=== PATIENT | female | born 1970 | race Caucasian/White ===

== ENCOUNTER 2016-10-27 07:17 | Emergency (ER) | payer OTHER ==
[2016-10-27 07:21] VITALS: BP 130/72; PULSE 112; RESP 20; TEMP 98.5
[2016-10-27] MEDS ORDERED: FAMOTIDINE 20 MG/2 ML VIAL MISCELLANE STA (07:35)
[2016-10-27] MEDS ORDERED: diphenhydrAMINE 50 MG/ML 1 ML VIAL IM STA (07:35)
--- NOTE | 2016-10-27 07:40 | ED ---
General Adult HPI - General Chief complaint: Allergic Reaction Stated complaint: Hives Time Seen by Provider: 10/27/16 07:21 Source: patient Mode of arrival: ambulatory Limitations: no limitations - History of Present Illness Initial comments: Is a 45-year-old female with no past medical history presents emergency department for generalized rash. She states is been there for the last 4 days. She was seen here partially 4 days ago and received steroids, Benadryl, and Pepcid. She's been taking his medications and states that she felt like she improved for a couple of days and then it came back and was worse. She is also been using [id number] topical Benadryl cream. She states that it's very itchy and feels like her skin is burning. She states it started on her chest and has moved out generally. She states that she also has difficulty breathing through her nose and feels stuffy and also has itchy and watery eyes. She does state that they recently had there for opened up in the insulation is been exposed. She denies any other new medications. No animal exposures. She called her primary doctor for evaluation however has not been able to get into the office yet. - Related Data Home Medications Medication Instructions Recorded Confirmed clonazePAM [KlonoPIN] 1 mg PO HS 01/12/14 10/09/15 Cetirizine HCl [Zyrtec] 5 mg PO QAM PRN 02/25/14 10/09/15 Hydrocodone/Acetaminophen [[place] 1 tab PO DIRECTED 06/06/14 10/09/15 5-325] Gabapentin [Neurontin] 400 mg PO TID 10/09/15 10/09/15 Mirtazapine [Remeron] 15 mg PO HS 10/09/15 10/09/15 Previous Rx's Medication Instructions Recorded Famotidine [Pepcid] 20 mg PO BID #8 tablet 10/23/16 diphenhydrAMINE [Benadryl] 50 mg PO QID PRN #20 capsule 10/23/16 predniSONE 20 mg PO BID #8 tab 10/23/16 methylPREDNISolone Dose Pack 4 mg PO DIRECTED #21 package 10/27/16 [Medrol Dose Pack] Allergies Allergy/AdvReac Type Severity Reaction Status Date / Time Penicillins AdvReac Severe Anaphylaxis Verified 10/27/16 07:21 Sulfa (Sulfonamide AdvReac Severe Anaphylaxis Verified 10/27/16 07:21 Antibiotics) Review of Systems ROS Statement: Those systems with pertinent positive or pertinent negative responses have been documented in the HPI. ROS Other: All systems not noted in ROS Statement are negative. 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 It is blanching with multiple excoriations from scratching. There is no weeping or vesicles. There is no pattern to the rash and is generalized. Neuro: A&Ox3 No focal neurologic deficits Psych: Appropriate mood and affect Limitations: no limitations Course Vital Signs 10/27/16 07:19 Temperature 98.5 F Pulse Rate 112 H Respiratory 20 Rate Blood Pressure 130/72 O2 Sat by Pulse 99 Oximetry Medical Decision Making - Medical Decision Making This is a 45-year-old female who presented for itchy rash. It appears to be an ALLERGIC reaction. I believe the patient is very exposing herself to something in her house. I told her to taper off the insulation and also monitor for any different soaps or anything else that she can be exposing herself to. I'm going to switch her steroids over to a Medrol Dosepak. She can continue with Benadryl 50 mg every 6 and also Zantac 150 mg twice a day. She is to follow-up with her primary doctor tomorrow. She has any worsening or changing symptoms she can return emergency department. All questions were answered. Disposition Clinical Impression: Atopic dermatitis Disposition: HOME SELF-CARE Condition: Stable Instructions: Dermatitis (ED) Prescriptions: methylPREDNISolone Dose Pack [Medrol Dose Pack] 4 mg PO DIRECTED #21 package Referrals: Marc Bullock DO [Primary Care Provider] - 1-2 days
== END 2016-10-27 08:10 | disposition home or self-care (01) ==
LOC: EC 07:17
DX: L20.9 Atopic dermatitis, unspecified (principal); M79.7 Fibromyalgia; F32.9 Major depressive disorder, single episode, unspecified; F41.0 Panic disorder [episodic paroxysmal anxiety]; F17.200 Nicotine dependence, unspecified, uncomplicated; Z79.899 Other long term (current) drug therapy; Z88.0 Allergy status to penicillin; Z88.2 Allergy status to sulfonamides
CPT/HCPCS: 99283; 96372 ×2; J1200

== ENCOUNTER 2016-12-10 20:13 | Emergency (ER) | payer OTHER ==
[2016-12-10] MEDS ORDERED: FAMOTIDINE 20 MG/2 ML VIAL IV STA (20:23)
[2016-12-10] MEDS ORDERED: diphenhydrAMINE 50 MG/ML 1 ML VIAL IVP STA (20:23)
[2016-12-10] MEDS ORDERED: SODIUM CHLORIDE 0.9% 500 ML IV ONE (20:23)
[2016-12-10] MEDS ORDERED: methylPREDNISolone SOD SUCCI 125 MG/2 ML VIAL IV STA (20:23)
--- NOTE | 2016-12-10 20:27 | ED ---
Allergic Reaction HPI - General Chief complaint: Allergic Reaction Stated complaint: Hives Time Seen by Provider: 12/10/16 20:19 Source: patient, RN notes reviewed Mode of arrival: ambulatory Limitations: no limitations - History of Present Illness Initial Comments: 46-year-old female presents emergency Department chief complaint hives. Patient states she's been having on going recurrent hives over the last 6-7 weeks. Patient states that she has been seen multiple times in the ER and by primary care physician. Patient has been referred to an hollow ware maker. Patient states today she was just sitting up a ball field and states that she started with hives. Patient states that she has no difficult breathing or difficulty swallowing. Patient states that she did take some Benadryl prior arrival and an albuterol inhaler. Patient denies any new soaps or lotions or detergents. Denies any new products of any sort. - Related Data Home Medications Medication Instructions Recorded Confirmed Hydrocodone/Acetaminophen [[place] 1 tab PO DAILY PRN 06/06/14 12/10/16 5-325] Mirtazapine [Remeron] 15 mg PO HS 10/09/15 12/10/16 Albuterol Inhaler [Ventolin Hfa 2 puff INHALATION RT-Q6H PRN 12/10/16 12/10/16 Inhaler] EPINEPHrine [Epipen 2-Henrik] 0.3 mg IM ONCE PRN 12/10/16 12/10/16 Gabapentin [Neurontin] 100 mg PO TID 12/10/16 12/10/16 Ibuprofen [Motrin] 800 mg PO TID PRN 12/10/16 12/10/16 Lidocaine 4% Cream [Lmx 4] 1 applic TOPICAL DAILY PRN 12/10/16 12/10/16 Lisinopril [Zestril] 5 mg PO HS 12/10/16 12/10/16 clonazePAM [KlonoPIN] 1 mg PO HS 12/10/16 12/10/16 diphenhydrAMINE HCL [Benadryl] 25 mg PO Q4H PRN 12/10/16 12/10/16 lamoTRIgine [LaMICtal Xr] 50 mg PO HS 12/10/16 12/10/16 Previous Rx's Medication Instructions Recorded Famotidine [Pepcid] 20 mg PO BID #8 tablet 04/05/17 Famotidine [Pepcid] 20 mg PO BID #10 tablet 12/10/16 diphenhydrAMINE [Benadryl] 50 mg PO QID PRN #20 capsule 12/10/16 methylPREDNISolone [Medrol Dose 4 mg PO DIRECTED #1 pack 12/10/16 Pack] Allergies Allergy/AdvReac Type Severity Reaction Status Date / Time Penicillins Allergy Unknown Rash/Hives Verified 12/10/16 20:44 Sulfa (Sulfonamide Allergy Unknown Rash/Hives Verified 12/10/16 20:44 Antibiotics) venom-honey bee Allergy Anaphylaxis Verified 12/10/16 20:44 Review of Systems ROS Statement: Those systems with pertinent positive or pertinent negative responses have been documented in the HPI. ROS Other: All systems not noted in ROS Statement are negative. 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 Absent: scleral icterus, conjunctival injection, periorbital swelling ENT exam: Present: normal exam, normal oropharynx, mucous membranes moist, TM's normal bilaterally, normal external ear exam Neck exam: Present: normal inspection, full ROM. Absent: tenderness, meningismus, lymphadenopathy Respiratory exam: Present: normal lung sounds bilaterally. Absent: respiratory distress, wheezes, rales, rhonchi, stridor Cardiovascular Exam: Present: normal rhythm, tachycardia, normal heart sounds. Absent: systolic murmur, diastolic murmur, rubs, gallop, clicks Neurological exam: Present: alert, oriented X3, CN II-XII intact Skin exam: Present: warm, dry, intact, normal color, rash, urticaria (Diffuse torso region neck and upper legs) Course Vital Signs 12/10/16 20:18 Temperature 98.6 F Pulse Rate 135 H Respiratory 20 Rate Blood Pressure 133/75 O2 Sat by Pulse 98 Oximetry - Reevaluation(s) Reevaluation #1: 12/10/16 21:28 Patient was reevaluated at this time. Patient's rash is resolving states that she is feeling improved. Patient be discharged with Medrol Dosepak, Benadryl. Return parameters were discussed. Medical Decision Making - Medical Decision Making 46-year-old female presented for rash or urticaria. Patient is improved after IV Benadryl; Pepcid. Patient be discharged at this time with follow-up with hollow ware maker return parameters were discussed. 12/10/16 21:28 EKG performed at 21:04 normal sinus rhythm rate of 96 UT interval 184 QRS duration 80 QT/QTC 344/434 Disposition Clinical Impression: Allergic reaction Disposition: HOME SELF-CARE Condition: Stable Instructions: General Allergic Reaction (ED) Additional Instructions: Please return to the Emergency Department if symptoms worsen or any other concerns. Prescriptions: diphenhydrAMINE [Benadryl] 50 mg PO QID PRN #20 capsule PRN Reason: Allergic Reaction Famotidine [Pepcid] 20 mg PO BID #10 tablet methylPREDNISolone [Medrol Dose Pack] 4 mg PO DIRECTED #1 pack Referrals: Marc Bullock DO [Primary Care Provider] - 1-2 days Time of Disposition: 21:29
[2016-12-10] MEDS ORDERED: LORazepam 2 MG/ML SYRINGE IV STA (20:48)
[2016-12-10 21:43] VITALS: BP 125/77; PULSE 100; RESP 18; TEMP 97.7
== END 2016-12-10 21:43 | disposition home or self-care (01) ==
LOC: EC 20:13
DX: T78.40XA Allergy, unspecified, initial encounter (principal); M79.7 Fibromyalgia; I10 Essential (primary) hypertension; F32.9 Major depressive disorder, single episode, unspecified; F41.9 Anxiety disorder, unspecified; F41.0 Panic disorder [episodic paroxysmal anxiety]; F17.200 Nicotine dependence, unspecified, uncomplicated; Z79.899 Other long term (current) drug therapy; Z88.0 Allergy status to penicillin; Z88.2 Allergy status to sulfonamides; Z91.013 Allergy to seafood
CPT/HCPCS: 93005; 99283; 96374; 96375 ×3; J2060; J1200; J2930

== ENCOUNTER → 2016-12-19 | Outpatient (CLI) | payer OTHER | END | disposition home or self-care (01) | LOC: LABWHC1 15:40 | PROVIDERS: ATTEND Family Medicine | DX: E66.09 Other obesity due to excess calories (principal) | CPT/HCPCS: 36415; 82947; 84439; 84443 ==

== ENCOUNTER 2017-01-03 17:16 | Emergency (ER) | payer OTHER ==
[2017-01-03 17:46] VITALS: BP 142/64; PULSE 91; RESP 18; TEMP 99
[2017-01-03] MEDS ORDERED: methylPREDNISolone SOD SUCCI 125 MG/2 ML VIAL IM STA (17:51)
--- NOTE | 2017-01-03 17:53 | ED ---
Skin/Abscess/FB HPI - General Chief complaint: Skin/Abscess/Foreign Body Stated complaint: hives Time Seen by Provider: 01/03/17 17:41 Source: patient, RN notes reviewed Mode of arrival: ambulatory Limitations: no limitations - History of Present Illness Initial comments: 46-year-old female presents emergency Department chief complaint of urticaria. Patient has been having hives outbreaks for the last 3 months. She is currently has a cough appointment with the field irrigation worker but she broke out with a rash again today and she feels as if she needs another dose of steroids. Patient states she hasn't had any fever chills this could Raynaud's. Patient states there is nothing new or different. Patient states she simply needs steroids. There is no difficulty in breathing.Patient denies any recent fever, chills, shortness of breath, chest pain, back pain, abdominal pain, nausea vomiting, numbness or tingling, dysuria or hematuria, constipation or diarrhea, headaches or visual changes, or any other current symptoms. - Related Data Home Medications Medication Instructions Recorded Confirmed Hydrocodone/Acetaminophen [[place] 1 tab PO DAILY PRN 06/06/14 01/03/17 5-325] Mirtazapine [Remeron] 15 mg PO HS 10/09/15 01/03/17 Albuterol Inhaler [Ventolin Hfa 2 puff INHALATION RT-Q6H PRN 12/10/16 01/03/17 Inhaler] EPINEPHrine [Epipen 2-Henrik] 0.3 mg IM ONCE PRN 12/10/16 01/03/17 Gabapentin [Neurontin] 100 mg PO TID 12/10/16 01/03/17 Ibuprofen [Motrin] 800 mg PO TID PRN 12/10/16 01/03/17 Lidocaine 4% Cream [Lmx 4] 1 applic TOPICAL DAILY PRN 12/10/16 01/03/17 Lisinopril [Zestril] 5 mg PO HS 12/10/16 01/03/17 clonazePAM [KlonoPIN] 1 mg PO HS 12/10/16 01/03/17 diphenhydrAMINE HCL [Benadryl] 25 mg PO Q4H PRN 12/10/16 01/03/17 lamoTRIgine [LaMICtal Xr] 50 mg PO HS 12/10/16 01/03/17 Budesonide-Formot 160-4.5 Mcg 2 puff INHALATION BID 01/03/17 01/03/17 [Symbicort 160-4.5 Mcg Inhaler] Metoprolol Succinate (ER) [Toprol 12.5 mg PO DAILY 01/03/17 01/03/17 Xl] Previous Rx's Medication Instructions Recorded Famotidine [Pepcid] 20 mg PO BID #8 tablet 10/23/16 Famotidine [Pepcid] 20 mg PO BID #10 tablet 12/10/16 diphenhydrAMINE [Benadryl] 50 mg PO QID PRN #20 capsule 12/10/16 methylPREDNISolone [Medrol Dose 4 mg PO DIRECTED #1 pack 12/10/16 Pack] diphenhydrAMINE [Benadryl] 50 mg PO HS PRN #5 capsule 01/03/17 methylPREDNISolone Dose Pack 4 mg PO DIRECTED #21 package 01/03/17 [Medrol Dose Pack] Allergies Allergy/AdvReac Type Severity Reaction Status Date / Time Penicillins Allergy Unknown Rash/Hives Verified 01/03/17 17:46 Sulfa (Sulfonamide Allergy Unknown Rash/Hives Verified 01/03/17 17:46 Antibiotics) venom-honey bee Allergy Anaphylaxis Verified 01/03/17 17:46 Review of Systems ROS Statement: Those systems with pertinent positive or pertinent negative responses have been documented in the HPI. ROS Other: All systems not noted in ROS Statement are negative. Past Medical History Past Medical History: Asthma, Fibromyalgia, Hypertension, Skin Disorder Additional Past Medical History / Comment(s): was gestational diabetic with and states now she has hypERglycemia, elevated heart rate History of Any Multi-Drug Resistant Organisms: None Reported Past Surgical History: Section Past Anesthesia/Blood Transfusion Reactions: No Reported Reaction Past Psychological History: Anxiety, Depression, Panic Disorder Smoking Status: Current every day smoker Past Alcohol Use History: Rare Past Drug Use History: None Reported General Exam Limitations: no limitations General appearance: alert, in no apparent distress ENT exam: Present: normal exam, mucous membranes moist Neck exam: Present: normal inspection. Absent: tenderness, meningismus, lymphadenopathy Respiratory exam: Present: normal lung sounds bilaterally. Absent: respiratory distress, wheezes, rales, rhonchi, stridor Cardiovascular Exam: Present: regular rate, normal rhythm, normal heart sounds. Absent: systolic murmur, diastolic murmur, rubs, gallop, clicks Neurological exam: Present: alert, oriented X3 Psychiatric exam: Present: normal affect, normal mood Skin exam: Present: warm, dry, intact, urticaria Course Vital Signs 01/03/17 17:40 Temperature 99.0 F Pulse Rate 91 Respiratory 18 Rate Blood Pressure 142/64 O2 Sat by Pulse 94 L Oximetry Medical Decision Making - Medical Decision Making 46-year-old female presents emergency Department chief complaint of an urticarial type rash. At this time we will start patient started to Benadryl. At this time she currently is in outpatient workup for the urticaria. Did discuss return parameters and all her questions. She states she understood and treatment plan. She'll be discharged. Disposition Clinical Impression: Urticaria Disposition: HOME SELF-CARE Condition: Stable Instructions: Urticaria (ED) Additional Instructions: Please use medication as discussed. Please follow up with family doctor if symptoms have not improved over the next two days. Please return to the emergency room if your symptoms increase or worsen or for any other concerns. Prescriptions: diphenhydrAMINE [Benadryl] 50 mg PO HS PRN #5 capsule PRN Reason: Itching methylPREDNISolone Dose Pack [Medrol Dose Pack] 4 mg PO DIRECTED #21 package Referrals: Marc Bullock DO [Primary Care Provider] - 1-2 days Time of Disposition: 17:53
== END 2017-01-03 18:03 | disposition home or self-care (01) ==
LOC: EC 17:16
DX: L50.9 Urticaria, unspecified (principal); I10 Essential (primary) hypertension; J45.909 Unspecified asthma, uncomplicated; F32.9 Major depressive disorder, single episode, unspecified; F17.200 Nicotine dependence, unspecified, uncomplicated; Z79.51 Long term (current) use of inhaled steroids; Z79.899 Other long term (current) drug therapy; Z88.0 Allergy status to penicillin; Z88.2 Allergy status to sulfonamides; Z91.030 Bee allergy status
CPT/HCPCS: 99282; 96372; J2930

== ENCOUNTER → 2017-01-28 | Outpatient (CLI) | payer OTHER ==
[2017-01-28 13:05] LABS: Basophils % (A) 0 %; CH 31.8; Eosinophils # (A) 0.2 k/uL (0-0.7); Eosinophils % (A) 3 %; HCT 38.7 % (34.0-46.0); HDW 2.24; HGB 13.6 gm/dL (11.4-16.0); Luc # (Auto) 0.12; Luc % (Auto) 2; Lymphocytes # (A) 2.6 k/uL (1.0-4.8); Lymphocytes % (A) 38 %; MCHC 35.2 g/dL (31.0-37.0); MCV 93.8 fL (80.0-100.0); Mean Platelet Volume 7.4; Monocytes # (A) 0.3 k/uL (0-1.0); Monocytes % (A) 5 %; Neutrophils # (A) 3.5 k/uL (1.3-7.7); Neutrophils % (A) 51 %; RBC 4.12 m/uL (3.80-5.40); RDW 13.4 % (11.5-15.5); WBC 6.9 k/uL (3.8-10.6); WBC (Perox) 7.06
--- NOTE | 2017-01-28 13:07 | XR ---
EXAMINATION TYPE: XR chest 2V DATE OF EXAM: 01/28/2017 COMPARISON: Chest x-ray July 03, 2015. HISTORY: Nicotine dependence. TECHNIQUE: Frontal and lateral views of the chest are obtained. FINDINGS: There is no focal air space opacity, pleural effusion, or pneumothorax seen. The cardiac silhouette size is within normal limits. The osseous structures are intact. IMPRESSION: No acute cardiopulmonary process on current study.
[2017-01-28 13:15] LABS: Rheumatoid Factor, Qnt <9 IU/mL (<12)
[2017-01-28 13:16] LABS: C Reactive Protein 8.1 mg/L (<10.0)
[2017-01-28 14:28] LABS: Hepatitis B Surface Ag Index 0.05
[2017-01-28 14:34] LABS: Hepatitis B Core IgM Index 0.03
[2017-01-28 14:45] LABS: Hepatitis C Virus IgG Ab Negative (Negative); Hepatitis C Virus IgG Index 0.02
[2017-01-28 19:03] LABS: Treponemal Ab Non-Reactive (Non-Reactive)
[2017-01-28 19:57] LABS: ANA w/Reflex to Titer NEGATIVE (NEGATIVE)
== END | disposition home or self-care (01) ==
LOC: LABWHC1 11:54
PROVIDERS: ATTEND Allergy & Immunology
DX: F17.208 Nicotine dependence, unspecified, with other nicotine-induced disorders (principal); L50.8 Other urticaria
CPT/HCPCS: 36415; 71020; 80074; 82785; 84165; 84439; 84443; 85025; 86038; 86140; 86376; 86431; 86780; 86800

== ENCOUNTER 2017-02-21 16:31 | Emergency (ER) | payer OTHER ==
[2017-02-21] MEDS ORDERED: RX INFO: IV CONTRAST WAS GIVEN 1 EACH MISC MISCELLANE PRN ×2 (16:42→17:15)
[2017-02-21 16:43] VITALS: BP 140/85; PULSE 84; RESP 22; TEMP 99.1
[2017-02-21] MEDS ORDERED: fentaNYL (PF) 50 MCG/ML 2 ML AMP IVP STA (16:53)
[2017-02-21 16:59] LABS: Basophils # (A) 0.1 k/uL (0-0.2); Basophils % (A) 1 %; CH 32.7; CHCM 34.5; Eosinophils # (A) 0.3 k/uL (0-0.7); Eosinophils % (A) 3 %; HCT 43.2 % (34.0-46.0); HDW 2.27; HGB 14.6 gm/dL (11.4-16.0); Luc # (Auto) 0.22; Luc % (Auto) 2; Lymphocytes # (A) 4.1 k/uL (1.0-4.8); Lymphocytes % (A) 30 %; MCHC 33.7 g/dL (31.0-37.0); Mean Platelet Volume 7.8; Monocytes # (A) 0.4 k/uL (0-1.0); Monocytes % (A) 3 %; Neutrophils # (A) 8.4 k/uL (1.3-7.7); Neutrophils % (A) 62 %; RBC 4.55 m/uL (3.80-5.40); RDW 13.8 % (11.5-15.5); WBC 13.6 k/uL (3.8-10.6); WBC (Perox) 13.38
--- NOTE | 2017-02-21 17:07 | XR ---
EXAMINATION TYPE: XR Hip RT and AP Pelvis DATE OF EXAM: 02/21/2017 COMPARISON: NONE HISTORY: Pain TECHNIQUE: A single AP view of the pelvis is obtained. Two views of the right hip are obtained. FINDINGS: The pelvic ring is intact. Proximal right femur and hip joint appear normal. There is no si gn of hip dysplasia. Sacroiliac joints appear normal. IMPRESSION: Negative pelvis and right hip exam.
--- NOTE | 2017-02-21 17:08 | XR ---
EXAMINATION TYPE: XR chest 1V portable DATE OF EXAM: 02/21/2017 COMPARISON: 01/28/2017 HISTORY: Pain TECHNIQUE: Single frontal view of the chest is obtained. FINDINGS: There is some infiltrate at the lateral left lung base. The other lung cloud are clear. T here is no sign of pneumothorax. Bony thorax appears intact. Heart and mediastinum appear normal. IMPRESSION: There is new infiltrate at the lateral left lung base. No obvious rib fracture.
[2017-02-21 17:10] LABS: ALT 26 U/L (9-52); AST 25 U/L (14-36); Alcohol <10 mg/dL; Alkaline Phosphatase 92 U/L (38-126); Amylase 38 U/L (30-110); Anion Gap 10 mmol/L; Blood Urea Nitrogen 14 mg/dL (7-17); Calcium 9.7 mg/dL (8.4-10.2); Carbon Dioxide 25 mmol/L (22-30); Chloride 106 mmol/L (98-107); Glucose 105 mg/dL (74-99); Non-African American GFR(MDRD) >60 (>60 ml/min/1.73 sqM); Potassium 4.1 mmol/L (3.5-5.1); Sodium 141 mmol/L (137-145); Total Bilirubin 0.3 mg/dL (0.2-1.3); Total Protein 6.6 g/dL (6.3-8.2)
--- NOTE | 2017-02-21 17:10 | ED ---
General Adult HPI - General Chief complaint: Fall Stated complaint: Fall- 13 ft Time Seen by Provider: 02/21/17 16:42 Source: patient, family, RN notes reviewed Mode of arrival: wheelchair Limitations: no limitations - History of Present Illness Initial comments: 46-year-old female with history of hypertension presenting status post fall. Patient was hanging a curtain [place] and two-story home when she fell from a ladder. Patient reports height of approximately 30 feet, although this was a two-story home. Patient did hit her head on a step. Uncertain loss of consciousness. Denies neck pain. She has a complaint of right hip and right flank pain. Also reports some generalized abdominal pain. No chest pain. Patient is evaluated as a level II trauma. - Related Data Home Medications Medication Instructions Recorded Confirmed Mirtazapine [Remeron] 15 mg PO HS 10/09/15 02/21/17 Albuterol Inhaler [Ventolin Hfa 2 puff INHALATION RT-Q6H PRN 12/10/16 02/21/17 Inhaler] EPINEPHrine [Epipen 2-Henrik] 0.3 mg IM ONCE PRN 12/10/16 02/21/17 Gabapentin [Neurontin] 100 mg PO TID 12/10/16 02/21/17 Lidocaine 4% Cream [Lmx 4] 1 applic TOPICAL TID PRN 12/10/16 02/21/17 clonazePAM [KlonoPIN] 0.5 - 1 mg PO HS 12/10/16 02/21/17 lamoTRIgine [LaMICtal Xr] 50 mg PO HS 12/10/16 02/21/17 Budesonide-Formot 160-4.5 Mcg 2 puff INHALATION RT-BID 01/03/17 02/21/17 [Symbicort 160-4.5 Mcg Inhaler] Metoprolol Succinate (ER) [Toprol 25 mg PO DAILY 01/03/17 02/21/17 Xl] Cetirizine HCl [Zyrtec] 10 mg PO HS 02/21/17 02/21/17 Fluticasone Nasal [place] [Flonase 2 spr EA NOSTRIL DAILY PRN 02/21/17 02/21/17 Nasal [place]] Montelukast Sodium [Singulair] 10 mg PO DAILY 02/21/17 02/21/17 Ranitidine HCl [Zantac] 150 mg PO BID PRN 02/21/17 02/21/17 hydrOXYzine HCL [Atarax] 10 - 20 mg PO Q4H PRN 02/21/17 02/21/17 hydrOXYzine HCL [Atarax] 20 mg PO HS 02/21/17 02/21/17 traMADol HCL [Ultram] 50 mg PO Q6H PRN 02/21/17 02/21/17 Previous Rx's Medication Instructions Recorded diphenhydrAMINE [Benadryl] 50 mg PO HS PRN #5 capsule 01/03/17 Diazepam [Valium] 5 mg PO BID PRN #12 tab 02/21/17 HYDROcodone/APAP 5-325MG [[place] 1 tab PO Q6HR PRN #24 tab 02/21/17 5-325] Allergies Allergy/AdvReac Type Severity Reaction Status Date / Time Penicillins Allergy Unknown Rash/Hives Verified 02/21/17 17:15 Sulfa (Sulfonamide Allergy Unknown Rash/Hives Verified 02/21/17 17:15 Antibiotics) venom-honey bee Allergy Anaphylaxis Verified 02/21/17 17:15 Review of Systems ROS Statement: Those systems with pertinent positive or pertinent negative responses have been documented in the HPI. ROS Other: All systems not noted in ROS Statement are negative. Past Medical History Past Medical History: Asthma, Fibromyalgia, Hypertension, Skin Disorder Additional Past Medical History / Comment(s): was gestational diabetic with and states now she has hypERglycemia, elevated heart rate History of Any Multi-Drug Resistant Organisms: None Reported Past Surgical History: Section Past Anesthesia/Blood Transfusion Reactions: No Reported Reaction Past Psychological History: Anxiety, Depression, Panic Disorder Smoking Status: Current every day smoker Past Alcohol Use History: Rare Past Drug Use History: None Reported General Exam Limitations: no limitations Course Vital Signs 02/21/17 16:40 Temperature 99.1 F Pulse Rate 84 Respiratory 22 Rate Blood Pressure 140/85 O2 Sat by Pulse 96 Oximetry EKG Findings - EKG Comments: EKG Findings:: EKG shows normal sinus rhythm, ventricular rate 76, pr 170, QRS 74, QTC 434 Medical Decision Making - Medical Decision Making 46-year-old female presents status post fall. Initial report was approximately 30 feet. After discussion with the patient's he does state this is a normal two-story home when she fell from likely 15-20 feet. CTA head and neck is obtained which is negative for intracranial hemorrhage, negative for cervical spine fracture or subluxation. CT of the chest abdomen pelvis is ordered, shows no acute intra-abdominal process, no acute injury to the chest, bones are intact. X-ray of the chest is negative for any acute findings. X- ray of the pelvis and hips shows no bony abnormality or dislocation. Laboratory studies including CBC, CMP show no significant abnormalities, patient was evaluated as a code to trauma. Case was discussed with trauma surgery on-call. No further recommendations at this time. Patient is given pain medication the emergency department. She is ambulatory. Complaining of right paraspinal lumbar pain and right hip pain. Diagnosis: Fall, closed head injury, right flank and paraspinal contusion - Lab Data Result diagrams: 02/21/17 16:47 02/21/17 16:47 Lab Results 02/21/17 02/21/17 02/21/17 Range/Units 16:47 16:47 16:47 WBC 13.6 H (3.8-10.6) k/uL RBC 4.55 (3.80-5.40) m/uL Hgb 14.6 (11.4-16.0) gm/dL Hct 43.2 (34.0-46.0) % MCV 95.0 (80.0-100.0) fL MCH 32.0 (25.0-35.0) pg MCHC 33.7 (31.0-37.0) g/dL RDW 13.8 (11.5-15.5) % Plt Count 240 (150-450) k/uL Neutrophils % 62 % Lymphocytes % 30 % Monocytes % 3 % Eosinophils % 3 % Basophils % 1 % Neutrophils # 8.4 H (1.3-7.7) k/uL Lymphocytes # 4.1 (1.0-4.8) k/uL Monocytes # 0.4 (0-1.0) k/uL Eosinophils # 0.3 (0-0.7) k/uL Basophils # 0.1 (0-0.2) k/uL PT (9.0-12.0) sec INR (<1.2) APTT (22.0-30.0) sec Sodium 141 (137-145) mmol/L Potassium 4.1 (3.5-5.1) mmol/L Chloride 106 (98-107) mmol/L Carbon Dioxide 25 (22-30) mmol/L Anion Gap 10 mmol/L BUN 14 (7-17) mg/dL Creatinine 0.90 (0.52-1.04) mg/dL Est GFR (MDRD) Af Amer >60 (>60 ml/min/1.73 sqM) Est GFR (MDRD) Non-Af >60 (>60 ml/min/1.73 sqM) Glucose 105 H (74-99) mg/dL Plasma Lactic Acid [place] (0.7-2.0) mmol/L Calcium 9.7 (8.4-10.2) mg/dL Total Bilirubin 0.3 (0.2-1.3) mg/dL AST 25 (14-36) U/L ALT 26 (9-52) U/L Alkaline Phosphatase 92 (38-126) U/L Total Creatine Kinase (30-135) U/L CK-MB (CK-2) (0.0-2.4) ng/mL CK-MB (CK-2) Rel Index Troponin I (0.000-0.034) ng/mL Total Protein 6.6 (6.3-8.2) g/dL Albumin 4.0 (3.5-5.0) g/dL Amylase 38 (30-110) U/L Lipase 64 (23-300) U/L Serum Alcohol <10 mg/dL Blood Type O Negative Blood Type Recheck No Antibody Screen NEGATIVE Spec Expiration Date 02/24/2017 - 234602/21/17 02/21/17 02/21/17 Range/Units 16:47 16:47 16:47 WBC (3.8-10.6) k/uL RBC (3.80-5.40) m/uL Hgb (11.4-16.0) gm/dL Hct (34.0-46.0) % MCV (80.0-100.0) fL MCH (25.0-35.0) pg MCHC (31.0-37.0) g/dL RDW (11.5-15.5) % Plt Count (150-450) k/uL Neutrophils % % Lymphocytes % % Monocytes % % Eosinophils % % Basophils % % Neutrophils # (1.3-7.7) k/uL Lymphocytes # (1.0-4.8) k/uL Monocytes # (0-1.0) k/uL Eosinophils # (0-0.7) k/uL Basophils # (0-0.2) k/uL PT 9.5 (9.0-12.0) sec INR 0.9 (<1.2) APTT 22.7 (22.0-30.0) sec Sodium (137-145) mmol/L Potassium (3.5-5.1) mmol/L Chloride (98-107) mmol/L Carbon Dioxide (22-30) mmol/L Anion Gap mmol/L BUN (7-17) mg/dL Creatinine (0.52-1.04) mg/dL Est GFR (MDRD) Af Amer (>60 ml/min/1.73 sqM) Est GFR (MDRD) Non-Af (>60 ml/min/1.73 sqM) Glucose (74-99) mg/dL Plasma Lactic Acid [place] 1.5 (0.7-2.0) mmol/L Calcium (8.4-10.2) mg/dL Total Bilirubin (0.2-1.3) mg/dL AST (14-36) U/L ALT (9-52) U/L Alkaline Phosphatase (38-126) U/L Total Creatine Kinase 91 (30-135) U/L CK-MB (CK-2) 0.6 (0.0-2.4) ng/mL CK-MB (CK-2) Rel Index 0.7 Troponin I <0.012 (0.000-0.034) ng/mL Total Protein (6.3-8.2) g/dL Albumin (3.5-5.0) g/dL Amylase (30-110) U/L Lipase (23-300) U/L Serum Alcohol mg/dL Blood Type Blood Type Recheck Antibody Screen Spec Expiration Date Critical Care Time Critical Care Time: Yes Total Critical Care Time: 35 Disposition Clinical Impression: Fall, Head injury, Lumbar back sprain Disposition: HOME SELF-CARE Condition: Good Instructions: Head Injury (ED), Contusion in Adults (ED), Acute Low Back Pain ( ED) Prescriptions: Diazepam [Valium] 5 mg PO BID PRN #12 tab PRN Reason: Muscle Spasm HYDROcodone/APAP 5-325MG [[place] 5-325] 1 tab PO Q6HR PRN #24 tab PRN Reason: Pain Referrals: Marc Bullock DO [Primary Care Provider] - 1-2 days Time of Disposition: 19:26
[2017-02-21 17:15] LABS: INR 0.9 (<1.2); Partial Thromboplastin Time 22.7 sec (22.0-30.0); Prothrombin Time 9.5 sec (9.0-12.0)
[2017-02-21 17:31] LABS: Creatine Kinase 91 U/L (30-135)
[2017-02-21 17:43] LABS: Creatine Kinase MB 0.6 ng/mL (0.0-2.4); Troponin I <0.012 ng/mL (0.000-0.034)
--- NOTE | 2017-02-21 18:02 | CT ---
EXAMINATION TYPE: CT ChestAbdPelvis w con DATE OF EXAM: 02/21/2017 COMPARISON: NONE HISTORY: Fall from approximately 30 feet today. Right sided body pain and posterir head injury CT DLP: 1305.2 mGycm Automated exposure control for dose reduction was used. CONTRAST: CT scan of the chest, abdomen and pelvis is performed without Oral Contrast and with IV Contrast, pat ient injected with 100 mL of Omnipaque 300. FINDINGS: There is patchy atelectasis at the posterior lung bases. There is no pleural effusion. There is no pn eumothorax. Heart and mediastinum appear normal. There is no mediastinal adenopathy. There are no hil ar masses. There is no pericardial effusion. Liver spleen pancreas appear normal. Bile ducts are not dilated. Gallbladder is contracted. There is no adrenal mass. Kidneys show satisfactory contrast opacification. There is no hydronephrosis. There is no retroperitoneal adenopathy. Bladder distends smoothly. There is no pelvic mass. I see no intestinal wall thickening. There are no dilated loops. There is no sign of appendicitis. Appendix appears normal. There is minor spurring in the lumbar spine at L2-3 and L5-S1 with narrowing of the disc spaces. I se e no compression fracture. I see no rib fracture. Bony pelvis is intact. IMPRESSION: Patchy atelectasis at the lung bases. No fracture seen. No sign of traumatic injury withi n the abdomen and pelvis. Spondylosis in the lumbar spine.
--- NOTE | 2017-02-21 18:04 | CT ---
EXAMINATION TYPE: CT brain dawn tate DATE OF EXAM: 02/21/2017 COMPARISON: NONE HISTORY: Fall from approximately 30 feet today. Right sided body pain and posterir head injury CT DLP: 1622.8 mGycm Automated exposure control for dose reduction was used. TECHNIQUE: CT scan of the head and cervical spine are performed without contrast. FINDINGS: Ventricles and sulci appear normal. There is no mass effect nor midline shift. There is n o sign of intracranial hemorrhage. The calvarium is intact. The cervical vertebra show some straightening. There is degenerative disc space narrowing at C6-7 wit h mild spurring of the endplates. Facet joints are intact. The skull base is intact. IMPRESSION: Negative CT scan of the brain. Mild degenerative disc changes at C6-7. Otherwise negative CT scan cervical spine.
[2017-02-21] MEDS ORDERED: MORPHINE SULFATE 4 MG/ML SYRINGE IVP STA (18:10)
[2017-02-21] MEDS ORDERED: KETOROLAC 30 MG/ML 1 ML VIAL IVP STA (18:10)
== END 2017-02-21 20:11 | disposition home or self-care (01) ==
LOC: EC 16:31
DX: S33.5XXA Sprain of ligaments of lumbar spine, initial encounter (principal); S09.90XA Unspecified injury of head, initial encounter; M25.551 Pain in right hip; R10.84 Generalized abdominal pain; J45.909 Unspecified asthma, uncomplicated; M79.7 Fibromyalgia; I10 Essential (primary) hypertension; F32.9 Major depressive disorder, single episode, unspecified; F41.9 Anxiety disorder, unspecified; F41.0 Panic disorder [episodic paroxysmal anxiety]; F17.200 Nicotine dependence, unspecified, uncomplicated; Z79.51 Long term (current) use of inhaled steroids; Z79.899 Other long term (current) drug therapy; Z88.2 Allergy status to sulfonamides; Z88.0 Allergy status to penicillin; Z91.030 Bee allergy status; W11.XXXA Fall on and from ladder, initial encounter; Y92.009 Unspecified place in unspecified non-institutional (private) residence as the place of occurrence of the external cause
CPT/HCPCS: 36415; 93005; 86900; 86901; 80053; 82150; 82550; 82553; 83605; 83690; 84484; 85025; 85610; 85730; 86850; 80320; 71010; 73502; 72125; 70450; 71260; 74177; 99285; 96374; 96375 ×2; J2270; J3010; J1885; Q9967

== ENCOUNTER → 2017-05-30 | Outpatient (CLI) | payer OTHER ==
--- NOTE | 2017-05-31 00:07 | MR ---
EXAMINATION TYPE: MR pelvis and lumbar spine wo con DATE OF EXAM: 05/30/2017 COMPARISON: NONE HISTORY: LBP/pelvic and perineal pain Multiplanar multiecho imaging of the pelvis and the lumbar spine was performed with no contrast. FINDINGS: The lumbar vertebra have fairly normal alignment. There is narrowing of L5-S1 disc space wi th posterior central L5-S1 disc herniation. There is developmentally adequate spinal canal and no spi nal stenosis. There is a small posterior disc bulge also at L2-3. Lumbar nerve roots appear normal. T he neural foramina show some narrowing at L5-S1 due to disc space narrowing and mild facet arthropath y. I see no focal bone destruction. There is a 1.5 cm high signal focus in the T12 vertebral body amado t is probably a hemangioma. There is no lumbar paraspinal mass. The sacroiliac joints appear intact. The uterus is retroverted. There is no evidence of a pelvic mass. The bony pelvis appears intact. The re is probably a tiny amount of free fluid in the cul-de-sac. There is some descent of the floor of t he urinary bladder. I see no sign of pelvic lymphadenopathy. IMPRESSION: There are posterior mild disc herniations at L5-S1 and L to 3 without significant neural impingement. Mild neural foraminal narrowing at L5-S1 due to disc space narrowing and facet arthropathy. No spina l stenosis. No acute fracture. There is 10% wedging of L2 vertebral body with Schmorl node consistent with old injury. There is cone-shaped floor of the urinary bladder with some descent that is consistent with cystocele . Minimal free fluid in the cul-de-sac.
--- NOTE | 2017-05-31 00:08 | MR ---
EXAMINATION TYPE: MR lumbar spine wo con This report is attached to the MR scan pelvis report.
== END | disposition home or self-care (01) ==
LOC: RADMRIMAIN 20:34
PROVIDERS: ATTEND Family Medicine
DX: M48.07 Spinal stenosis, lumbosacral region (principal); M99.73 Connective tissue and disc stenosis of intervertebral foramina of lumbar region; M51.27 Other intervertebral disc displacement, lumbosacral region; M46.86 Other specified inflammatory spondylopathies, lumbar region; M51.46 Schmorl's nodes, lumbar region; R93.41 Abnormal radiologic findings on diagnostic imaging of renal pelvis, ureter, or bladder
CPT/HCPCS: 72148; 72195

== ENCOUNTER 2017-07-08 09:51 | Day surgery (SDC) | payer OTHER ==
[2017-07-04 10:44] VITALS: BMI 32.1
[~2017-07-08 09:51] MED LIST: DEXAMETHASONE SOD PHOSPHATE 10 MG/ML 1 ML VIAL IV ONE; HEPARIN SODIUM,PORCINE 5,000 UNIT/ML 1 ML VIAL SQ ONE; MIDAZOLAM 2 MG/2 ML VIAL IV PRN; ONDANSETRON 4 MG/2 ML VIAL IVP ONE; ceFAZolin IN SWFI 2 GM/20 ML SYRINGE IVP ONE
--- NOTE | 2017-07-08 10:43 | P.GSHP ---
History of Present Illness H&P Date: 07/08/17 Chief Complaint: Right inguinal hernia This a 46-year-old female who presents today for laparoscopic robotic of right inguinal hernia. Patient was examined the office found have a right inguinal mass. Past Medical History Past Medical History: Asthma, COPD, Fibromyalgia, Hypertension, Skin Disorder Additional Past Medical History / Comment(s): was gestational diabetic with and states now she has hypERglycemia, elevated heart rate History of Any Multi-Drug Resistant Organisms: None Reported Past Surgical History: Section, Orthopedic Surgery, Uterine Ablation Additional Past Surgical History / Comment(s): LEFT ANKLE RECONSTRUCTION Past Anesthesia/Blood Transfusion Reactions: Postoperative Nausea & Vomiting ( PONV) Smoking Status: Current every day smoker - Past Family History Mother Family Medical History: No Reported History Medications and Allergies Home Medications Medication Instructions Recorded Confirmed Type Mirtazapine [Remeron] 15 mg PO HS 10/09/15 07/04/17 History Albuterol Inhaler [Ventolin Hfa 2 puff INHALATION RT-Q6H PRN 12/10/16 07/04/17 History Inhaler] EPINEPHrine [Epipen 2-Henrik] 0.3 mg IM ONCE PRN 12/10/16 07/08/17 History Gabapentin [Neurontin] 300 mg PO QID 12/10/16 07/04/17 History Lidocaine 4% Cream [Lmx 4] 1 applic TOPICAL TID PRN 12/10/16 07/04/17 History clonazePAM [KlonoPIN] 0.5 - 1 mg PO HS 12/10/16 07/04/17 History lamoTRIgine [LaMICtal Xr] 50 mg PO HS 12/10/16 07/04/17 History Budesonide-Formot 160-4.5 Mcg 2 puff INHALATION RT-BID 01/03/17 07/04/17 History [Symbicort 160-4.5 Mcg Inhaler] diphenhydrAMINE [Benadryl] 50 mg PO HS PRN #5 capsule 01/03/17 07/08/17 Rx Cetirizine HCl [Zyrtec] 10 mg PO HS 02/21/17 07/04/17 History Fluticasone Nasal [place] [Flonase 2 spr EA NOSTRIL BID 02/21/17 07/04/17 History Nasal [place]] HYDROcodone/APAP 5-325MG [[place] 1 tab PO Q6HR PRN #24 tab 02/21/17 07/04/17 Rx 5-325] Montelukast Sodium [Singulair] 10 mg PO DAILY 02/21/17 07/04/17 History Ranitidine HCl [Zantac] 150 mg PO BID PRN 02/21/17 07/04/17 History hydrOXYzine HCL [Atarax] 10 - 20 mg PO Q4H PRN 02/21/17 07/04/17 History hydrOXYzine HCL [Atarax] 20 mg PO HS 02/21/17 07/04/17 History Albuterol Nebulized [Ventolin 2.5 mg INHALATION Q6H PRN 07/04/17 07/04/17 History Nebulized] Tiotropium 18 Mcg/Puff [Spiriva] 2 puff INHALATION DAILY 07/04/17 07/04/17 History Verapamil HCl [Verapamil ER] 120 mg PO HS 07/04/17 07/04/17 History Allergies Allergy/AdvReac Type Severity Reaction Status Date / Time Penicillins Allergy Unknown Rash/Hives Verified 07/08/17 10:05 Sulfa (Sulfonamide Allergy Unknown Rash/Hives Verified 07/08/17 10:05 Antibiotics) [place] Inhibitors Allergy Anaphylaxis Verified 07/08/17 10:05 NSAIDS (Non-Steroidal Allergy Rash/Hives Verified 07/08/17 10:05 Anti-Inflamma venom-honey bee Allergy Anaphylaxis Verified 07/08/17 10:05 Surgical - Exam - General well developed, no distress - Eyes PERRL - ENT normal pinna - Neck no masses - Respiratory normal expansion - Cardiovascular Rhythm: regular - Abdomen Abdomen: soft, non tender Assessment and Plan Assessment: Right internal hernia. We'll perform laparoscopic robotic-assisted repair.
[2017-07-08] MEDS ORDERED: LIDOCAINE 1% 20 ML VIAL (10MG/ML) FOR IV START INTRADERMA ONE ×2 (10:48→10:49)
[2017-07-08] MEDS: LACTATED RINGERS 1,000 ML IV SCH (10:48)
[2017-07-08] MEDS ORDERED: CLINDAMYCIN 600 MG in DEXTROSE 5% IN WATER 50 ML IVPB STA ×2 (11:00)
[2017-07-08] MEDS ORDERED: ONDANSETRON 4 MG/2 ML VIAL ONE (11:14)
[2017-07-08] MEDS ORDERED: SUCCINYLCHOLINE CHLORIDE 100 MG/5 ML SYR IV ONE (11:14)
[2017-07-08] MEDS ORDERED: fentaNYL (PF) 50 MCG/ML 2 ML AMP ONE (11:14)
[2017-07-08] MEDS ORDERED: PROPOFOL 10 MG/ML 20 ML VIAL IV ONE (11:14)
[2017-07-08] MEDS ORDERED: NEOSTIGMINE 1 MG/ML 10 ML VIAL ONE (11:14)
[2017-07-08] MEDS ORDERED: MIDAZOLAM 2 MG/2 ML VIAL ONE (11:14)
[2017-07-08] MEDS ORDERED: HYDROmorphone (PF) 1 MG/ML ONE (11:14)
[2017-07-08] MEDS ORDERED: ePHEDrine SULFATE/0.9% NACL/PF 50 MG/5 ML SYRINGE IV ONE (11:14)
[2017-07-08] MEDS ORDERED: LIDOCAINE 1% INJ 10MG/ML (20 ML MDV) ONE (11:14)
[2017-07-08] MEDS ORDERED: KETOROLAC 30 MG/ML 1 ML VIAL ONE (11:14)
[2017-07-08] MEDS ORDERED: ROCURONIUM BROMIDE 10 MG/ML 10 ML VIAL IV ONE (11:14)
[2017-07-08] MEDS ORDERED: GLYCOPYRROLATE 0.2 MG/ML 2 ML VIAL ONE (11:14)
[2017-07-08] MEDS ORDERED: BUPIVACAINE-EPI 0.5%-1:200,000 10 ML VIAL SQ ONE (11:33)
[2017-07-08] MEDS: HYDROmorphone 0.5 MG/0.5 ML SYRINGE IVP PRN ×2 (12:30→12:45)
[2017-07-08] MEDS ORDERED: METOCLOPRAMIDE 5 MG/ML 2 ML VIAL IVP ONE (12:31)
[2017-07-08] MEDS ORDERED: HYDROmorphone 1 MG/ML 1 ML SYRINGE IVP ONE (12:35)
[2017-07-08 12:43] VITALS: TEMP 97.1
[2017-07-08] MEDS ORDERED: diphenhydrAMINE 50 MG/ML 1 ML VIAL IVP ONE (12:49)
[2017-07-08] MEDS ORDERED: ALBUTEROL NEBULIZED 2.5 MG/3 ML INHALATION ONE (13:07)
[2017-07-08] MEDS ORDERED: LACTATED RINGERS 1,000 ML IV ONE (13:20)
[2017-07-08 13:29] VITALS: RESP 18
[2017-07-08] MEDS ORDERED: HYDROcodone/APAP 7.5-325MG 1 EACH TAB PO ONE (13:50)
[2017-07-08 13:58] VITALS: BP 135/62; PULSE 108
--- NOTE | 2017-08-07 11:22 | P.OP ---
Date of Procedure: 07/08/17 Preoperative Diagnosis: Right inguinal hernia Postoperative Diagnosis: Right inguinal hernia Procedure(s) Performed: Laparoscopic robotic-assisted repair of right inguinal hernia Anesthesia: BENITA Surgeon: Loki Maurice Estimated Blood Loss (ml): 5 Pathology: none sent Condition: stable Disposition: PACU Description of Procedure: The patient's placed on the operating table in the supine position. The patient received general anesthesia. The patient's abdomen was prepped and draped in usual sterile fashion. The skin was anesthetized 1% local Xylocaine at the incision sites. Using an 11 blade a skin incision was made at the umbilicus. The fascia was grasped with a Brooke and then the peritoneal cavity was entered with the Veress needle. Position of the Veress needle was confirmed with a positive drop test. After adequate insufflation a 5 mm trocar was placed into the peritoneal cavity. The Laparoscope was placed the peritoneal cavity. And a robotic 8 mm trocar was placed in the right lateral position and then another 8 mm robotic trochars placed in the left lateral position. The original 5 mm trocar was exchanged for a 12 mm trocar. The patient was placed in reverse Trendelenburg and then the patient was docked to the robot. Next the peritoneum over top of the hernia was incised and then using blunt and sharp dissection and electrocautery the hernia sac was dissected free from the floor of the inguinal canal. The hernia sac was completely reduced into the peritoneal cavity. And then using the Pro director electrical engineering mesh the hernia was repaired. The peritoneum was then sutured with 20V lock suture. The patient was then undocked the robot. The needle was withdrawn from the peritoneal cavity. The umbilical trocar site was closed with 0 Ethibond suture. The skin was closed interrupted 3-0 Monocryl suture. Dermabond dressing was applied. Patient was sent to recovery in stable condition.
== END 2017-07-08 14:40 | disposition home or self-care (01) ==
LOC: OR 09:51
PROVIDERS: ATTEND Surgery
DX: K40.90 Unilateral inguinal hernia, without obstruction or gangrene, not specified as recurrent (principal); J44.9 Chronic obstructive pulmonary disease, unspecified; M79.7 Fibromyalgia; I10 Essential (primary) hypertension; F17.210 Nicotine dependence, cigarettes, uncomplicated; K21.9 Gastro-esophageal reflux disease without esophagitis; Z79.51 Long term (current) use of inhaled steroids; Z79.899 Other long term (current) drug therapy; Z88.0 Allergy status to penicillin; Z88.2 Allergy status to sulfonamides; Z88.8 Allergy status to other drugs, medicaments and biological substances; Z88.6 Allergy status to analgesic agent; Z91.030 Bee allergy status
CPT/HCPCS: 81025; 49650; C1781; J2250; J1200; J1644; J1100; J2710; J2765; J2405; J2001; J3010; J1885; J1170 ×2; J0330; J2704

== ENCOUNTER 2017-07-22 12:58 | Emergency (ER) | payer OTHER ==
--- NOTE | 2017-07-22 12:44 | CT ---
EXAMINATION TYPE: CT pelvis w con DATE OF EXAM: 07/22/2017 COMPARISON: NONE HISTORY: Rt groin pain, fever, Rt inguinal hernia surgery [address] DLP: 804.6 mGycm Automated exposure control for dose reduction was used. Unenhanced CT of the pelvis was performed. CONTRAST: Performed with IV Contrast, patient injected with 100 mL of Omnipaque 300. FINDINGS: There is inflammatory change noted with associated fluid within the right lower quadrant which may be postsurgical in nature or related to superimposed infection. I do not see evidence for drainable abs cess. Fluid is seen extending into the right inguinal canal which may reflect postoperative seroma an d/or hematoma measuring approximately 2.5 x 6.3 cm. There is a normal appendix. Visualized gastrointestinal tract appears to be intact. Small ovarian fol licular cysts noted. Uterus is unremarkable. Lower poles of the kidneys as well as the visualized por tions of the aorta are unremarkable. IMPRESSION: 1.There is inflammatory change noted with associated fluid within the right lower quadrant which may be postsurgical in nature or related to superimposed infection. I do not see evidence for drainable a bscess. Fluid is seen extending into the right inguinal canal which may reflect postoperative seroma and/or hematoma measuring approximately 2.5 x 6.3 cm.
--- NOTE | 2017-07-22 14:28 | ED ---
General Adult HPI - General Chief complaint: Abdominal Pain Time Seen by Provider: 07/22/17 14:27 Source: patient Mode of arrival: wheelchair Limitations: no limitations - History of Present Illness Initial comments: Dinorah Jaramillo is a 36-year-old female who presents to the emergency department for CT for evaluation of an abnormal finding on CT. Patient underwent a laparoscopic right inguinal hernia repair with mesh on July 09 at our facility. Patient reports that since that time she's had persistent pain in the right lower quadrant. She states that at the one week postoperative appointment she was diagnosed with UTI and given 3 days of Levaquin which she completed. She reports that her dysuria resolved after that. She reports that she's had persistent pain in the right inguinal region and the area of the mons pubis. Patient has noted some significant bruising in this area. She followed up with her primary care physician today who ordered an outpatient computed tomography scan. Computed tomography scan revealed a fluid collection of 2.5 x 6.2 cm suggestive of possible seroma or hematoma. Patient was advised to come to the emergency department for further evaluation. Patient reports that her maximum temperature has been 99.8, she has been taking [place] and Tylenol [id number] for pain management. She reports that she has had subjective chills and hot flashes. She denies any nausea, vomiting, change in bowel or bladder habits. - Related Data Home Medications Medication Instructions Recorded Confirmed Mirtazapine [Remeron] 15 mg PO HS 10/09/15 07/22/17 Albuterol Inhaler [Ventolin Hfa 2 puff INHALATION RT-Q6H PRN 12/10/16 07/22/17 Inhaler] EPINEPHrine [Epipen 2-Henrik] 0.3 mg IM ONCE PRN 12/10/16 07/22/17 Gabapentin [Neurontin] 300 mg PO QID 12/10/16 07/22/17 Lidocaine 4% Cream [Lmx 4] 1 applic TOPICAL TID PRN 12/10/16 07/22/17 clonazePAM [KlonoPIN] 0.5 - 1 mg PO HS 12/10/16 07/22/17 lamoTRIgine [LaMICtal Xr] 50 mg PO HS 12/10/16 07/22/17 Budesonide-Formot 160-4.5 Mcg 2 puff INHALATION RT-BID 01/03/17 07/22/17 [Symbicort 160-4.5 Mcg Inhaler] Cetirizine HCl [Zyrtec] 10 mg PO HS 02/21/17 07/22/17 Fluticasone Nasal [place] [Flonase 2 spr EA NOSTRIL BID 02/21/17 07/22/17 Nasal [place]] Montelukast Sodium [Singulair] 10 mg PO DAILY 02/21/17 07/22/17 Ranitidine HCl [Zantac] 150 mg PO BID PRN 02/21/17 07/22/17 hydrOXYzine HCL [Atarax] 10 - 20 mg PO Q4H PRN 02/21/17 07/22/17 hydrOXYzine HCL [Atarax] 20 mg PO HS 02/21/17 07/22/17 Albuterol Nebulized [Ventolin 2.5 mg INHALATION Q6H PRN 07/04/17 07/22/17 Nebulized] Tiotropium 18 Mcg/Puff [Spiriva] 2 puff INHALATION RT-DAILY 07/04/17 07/22/17 Verapamil HCl [Verapamil ER] 120 mg PO HS 07/04/17 07/22/17 Docusate [Colace] 100 mg PO BID PRN 07/22/17 07/22/17 HYDROcodone/APAP 10-325MG [[place] 1 tab PO Q6H PRN 07/22/17 07/22/17 10-325] Previous Rx's Medication Instructions Recorded diphenhydrAMINE [Benadryl] 50 mg PO HS PRN #5 capsule 01/03/17 Allergies Allergy/AdvReac Type Severity Reaction Status Date / Time Penicillins Allergy Unknown Rash/Hives Verified 07/22/17 14:46 Sulfa (Sulfonamide Allergy Unknown Rash/Hives Verified 07/22/17 14:46 Antibiotics) [place] Inhibitors Allergy Anaphylaxis Verified 07/22/17 14:46 NSAIDS (Non-Steroidal Allergy Rash/Hives Verified 07/22/17 14:46 Anti-Inflamma venom-honey bee Allergy Anaphylaxis Verified 07/22/17 14:46 Review of Systems ROS Statement: Those systems with pertinent positive or pertinent negative responses have been documented in the HPI. ROS Other: All systems not noted in ROS Statement are negative. Constitutional: Reports: fever (subjective), chills Respiratory: Denies: cough, dyspnea Cardiovascular: Denies: chest pain, palpitations Endocrine: Reports: fatigue Gastrointestinal: Reports: abdominal pain Genitourinary: Denies: urgency, dysuria Musculoskeletal: Denies: back pain Skin: Reports: other (well healing surgical incisions). Denies: rash, lesions Neurological: Denies: headache, weakness Psychiatric: Denies: anxiety, depression Hematological/Lymphatic: Denies: easy bleeding Past Medical History Past Medical History: Asthma, COPD, Fibromyalgia, Hypertension, Skin Disorder Additional Past Medical History / Comment(s): was gestational diabetic with and states now she has hypERglycemia, elevated heart rate History of Any Multi-Drug Resistant Organisms: None Reported Past Surgical History: Section, Orthopedic Surgery, Uterine Ablation Additional Past Surgical History / Comment(s): LEFT ANKLE RECONSTRUCTION Past Anesthesia/Blood Transfusion Reactions: Postoperative Nausea & Vomiting ( PONV) Past Psychological History: Anxiety, Depression, Panic Disorder Smoking Status: Current every day smoker Past Alcohol Use History: Occasional Past Drug Use History: None Reported - Past Family History Mother Family Medical History: No Reported History General Exam Limitations: no limitations General appearance: alert, in no apparent distress Head exam: Present: atraumatic, normocephalic Eye exam: Present: normal appearance, PERRL, EOMI. Absent: scleral icterus, conjunctival injection, periorbital swelling ENT exam: Present: normal exam, mucous membranes moist Neck exam: Present: normal inspection. Absent: tenderness, meningismus, lymphadenopathy Respiratory exam: Present: normal lung sounds bilaterally. Absent: respiratory distress, wheezes, rales, rhonchi, stridor Cardiovascular Exam: Present: regular rate, normal rhythm, normal heart sounds. Absent: systolic murmur, diastolic murmur, rubs, gallop, clicks GI/Abdominal exam: Present: soft, tenderness, normal bowel sounds, other (Well- healing laparoscopic surgical incisions, bruising to the right inguinal area and mons pubis tenderness to palpation in the right inguinal canal, palpable lump in the right inguinal canal). Absent: distended, guarding, rebound, rigid Rectal exam: Present: deferred Extremities exam: Present: normal inspection, full ROM, normal capillary refill. Absent: tenderness, pedal edema, joint swelling, calf tenderness Back exam: Present: normal inspection Neurological exam: Present: alert, oriented X3, CN II-XII intact Psychiatric exam: Present: normal affect, normal mood Skin exam: Present: warm, dry, intact, normal color, other (post surgical changes). Absent: rash Course Vital Signs 07/22/17 12:59 Temperature 98.7 F Pulse Rate 90 Respiratory 18 Rate Blood Pressure 134/85 O2 Sat by Pulse 99 Oximetry Medical Decision Making - Medical Decision Making Patient seen and evaluated, history obtained from patient and medical record Imaging reviewed - fluid collection in RIGHT inguinal canal - seroma vs hematoma Labs ordered Labs unremarkable Patient care discussed with Dr. Ospina who states that post op seroma is a common complication, there are no signs of infection, no SIRS critera, patient is stable for discharge home with continued PO narcotics for pain management Dr Maurice will be back in town tomorrow and available to reevaluate the patient before the end of the week Plan was discussed with the patient who expresses relief and is in agreement with plan for discharge home and follow-up with Dr. Maurice's office. All questions pertaining to care were answered to the best of my ability patient was discharged home in stable condition. - Lab Data Result diagrams: 07/22/17 14:42 07/22/17 14:42 Lab Results 07/22/17 07/22/17 07/22/17 Range/Units 14:42 14:42 14:56 WBC 9.3 (3.8-10.6) k/uL RBC 4.25 (3.80-5.40) m/uL Hgb 13.3 (11.4-16.0) gm/dL Hct 40.8 (34.0-46.0) % MCV 96.2 (80.0-100.0) fL MCH 31.2 (25.0-35.0) pg MCHC 32.4 (31.0-37.0) g/dL RDW 13.8 (11.5-15.5) % Plt Count 335 (150-450) k/uL Neutrophils % 63 % Lymphocytes % 28 % Monocytes % 4 % Eosinophils % 3 % Basophils % 0 % Neutrophils # 5.8 (1.3-7.7) k/uL Lymphocytes # 2.6 (1.0-4.8) k/uL Monocytes # 0.4 (0-1.0) k/uL Eosinophils # 0.3 (0-0.7) k/uL Basophils # 0.0 (0-0.2) k/uL Sodium 140 (137-145) mmol/L Potassium 4.4 (3.5-5.1) mmol/L Chloride 107 (98-107) mmol/L Carbon Dioxide 24 (22-30) mmol/L Anion Gap 9 mmol/L BUN 10 (7-17) mg/dL Creatinine 0.76 (0.52-1.04) mg/dL Est GFR (MDRD) Af Amer >60 (>60 ml/min/1.73 sqM) Est GFR (MDRD) Non-Af >60 (>60 ml/min/1.73 sqM) Glucose 98 (74-99) mg/dL Calcium 9.7 (8.4-10.2) mg/dL Total Bilirubin 0.3 (0.2-1.3) mg/dL AST 24 (14-36) U/L ALT 35 (9-52) U/L Alkaline Phosphatase 75 (38-126) U/L Total Protein 6.6 (6.3-8.2) g/dL Albumin 3.9 (3.5-5.0) g/dL Urine Color Light Yellow Urine Appearance Clear (Clear) Urine pH 6.0 (5.0-8.0) Ur Specific [place] 1.021 (1.001-1.035) Urine Protein Negative (Negative) Urine Glucose (UA) Negative (Negative) Urine Ketones Negative (Negative) Urine Blood Negative (Negative) Urine Nitrite Negative (Negative) Urine Bilirubin Negative (Negative) Urine Urobilinogen <2.0 (<2.0) mg/dL Ur Leukocyte Esterase Negative (Negative) Disposition Clinical Impression: Seroma after procedure Disposition: HOME SELF-CARE Condition: Good Instructions: Hematoma (ED) Referrals: Marc Bullock DO [Primary Care Provider] - 1-2 days Loki Maurice MD [STAFF PHYSICIAN] - 1-2 days Time of Disposition: 15:27
[2017-07-22 15:02] LABS: Basophils % (A) 0 %; Eosinophils # (A) 0.3 k/uL (0-0.7); Eosinophils % (A) 3 %; HCT 40.8 % (34.0-46.0); HGB 13.3 gm/dL (11.4-16.0); Lymphocytes # (A) 2.6 k/uL (1.0-4.8); Lymphocytes % (A) 28 %; MCH 31.2 pg (25.0-35.0); MCHC 32.4 g/dL (31.0-37.0); MCV 96.2 fL (80.0-100.0); Mean Platelet Volume 6.8; Monocytes # (A) 0.4 k/uL (0-1.0); Monocytes % (A) 4 %; Neutrophils # (A) 5.8 k/uL (1.3-7.7); Neutrophils % (A) 63 %; Platelet Count 335 k/uL (150-450); RBC 4.25 m/uL (3.80-5.40); RDW 13.8 % (11.5-15.5); WBC 9.3 k/uL (3.8-10.6)
[2017-07-22 15:09] LABS: ALT 35 U/L (9-52); AST 24 U/L (14-36); Albumin 3.9 g/dL (3.5-5.0); Alkaline Phosphatase 75 U/L (38-126); Anion Gap 9 mmol/L; Blood Urea Nitrogen 10 mg/dL (7-17); Calcium 9.7 mg/dL (8.4-10.2); Carbon Dioxide 24 mmol/L (22-30); Chloride 107 mmol/L (98-107); Glucose 98 mg/dL (74-99); Potassium 4.4 mmol/L (3.5-5.1); Sodium 140 mmol/L (137-145); Total Bilirubin 0.3 mg/dL (0.2-1.3); Total Protein 6.6 g/dL (6.3-8.2)
[2017-07-22] MEDS ORDERED: MORPHINE SULFATE 5 MG/ML SYRINGE IVP STA (15:26)
[2017-07-22 15:27] LABS: Appearance,Urine Clear (Clear); Bilirubin,Urine Negative (Negative); Blood,Urine Negative (Negative); Color,Urine Light Yellow; Glucose,Urine (UA) Negative (Negative); Ketones,Urine Negative (Negative); Leukocyte Esterase,Urine Negative (Negative); Nitrite,Urine Negative (Negative); Protein,Urine Negative (Negative); Specific Gravity,Urine 1.021 (1.001-1.035); Urobilinogen,Urine <2.0 mg/dL (<2.0)
[2017-07-23 23:04] VITALS: BP 134/85; PULSE 90; RESP 18; TEMP 98.7
== END 2017-07-22 15:48 | disposition home or self-care (01) ==
LOC: EC 12:58
DX: K91.872 Postprocedural seroma of a digestive system organ or structure following a digestive system procedure (principal); J44.9 Chronic obstructive pulmonary disease, unspecified; I10 Essential (primary) hypertension; M79.7 Fibromyalgia; F32.9 Major depressive disorder, single episode, unspecified; F41.9 Anxiety disorder, unspecified; F17.200 Nicotine dependence, unspecified, uncomplicated; Z88.2 Allergy status to sulfonamides; Z88.0 Allergy status to penicillin; Z88.6 Allergy status to analgesic agent; Z91.030 Bee allergy status; Z88.8 Allergy status to other drugs, medicaments and biological substances; Z79.51 Long term (current) use of inhaled steroids; Z79.899 Other long term (current) drug therapy; Y83.8 Other surgical procedures as the cause of abnormal reaction of the patient, or of later complication, without mention of misadventure at the time of the procedure
CPT/HCPCS: 36415; 80053; 85025; 81003; 72193; 99284; 96374; Q9967; J2274

== ENCOUNTER → 2017-09-06 | Outpatient (CLI) | payer OTHER ==
--- NOTE | 2017-09-06 19:06 | MR ---
EXAMINATION TYPE: MR cervical spine wo con DATE OF EXAM: 09/06/2017 COMPARISON: NONE HISTORY: 46-year-old female neck pain, Cervicalgia, fell off ladder TECHNIQUE: Multiplanar, multisequence images of the cervical spine were acquired. FINDINGS: No craniocervical junction abnormality, predental space widening, or prevertebral soft tissue swellin g. Small mucosal retention cyst in the right sphenoid sinus partially visualized. There is preserved alignment of the cervical spine. Variable lsau-on-dtjnrsso disc desiccation throughout, greatest at C6-C7 where there is [id number] ate disc interspace narrowing. Bulging disks at multiple levels especially C5-C6 and C6-C7. Multilevel facet and uncovertebral joint degenerative changes also present. No suspicious bone marrow replacement. Fatty matrix hemangioma within C4 vertebral body. At C2-C3, no spinal canal or neuroforaminal stenosis. Mild facet arthropathy is present. At C3-C4, mild facet degenerative change and mild uncovertebral joint spurring. Tiny central disc pro trusion is also noted. There is minimal abutment of the ventral cord. No significant spinal canal or neuroforaminal stenosis. At C4-C5, bilateral facet and uncovertebral joint degenerative change with [id number] bilateral neuroforaminal stenosis. Tiny central disc protrusion without significant spinal canal stenosis. At C5-C6, there is broad-based disc protrusion with uncovertebral joint and facet degenerative change . Changes result in moderate left and [id number] right neuroforaminal stenosis with mild to mod erate spinal canal stenosis. There is abutment and flattening of the ventral cord. At C6-C7, similar changes are present with abutment and slight flattening of the ventral cord and mil d to moderate spinal canal stenosis. There is a moderate to severe left greater than right neuroforam inal stenosis at this level. At C7-T1, facet arthropathy without canal or foraminal stenosis. No T2-weighted cord signal abnormality. No prevertebral or paravertebral soft tissue abnormality. IMPRESSION: 1. No malalignment of the cervical spine. 2. Moderate multilevel spondylotic change especially at C5-C6 and C6-C7. Disc bulges here contribute to mild to moderate spinal canal stenoses with disc material abutting and slightly flattening the luz tral cord at these levels. No malena canal compromise. 3. Additional facet and uncovertebral joint degenerative change throughout. Changes result in moderat e to severe left greater than right neuroforaminal stenosis at C6-C7 and moderate left and mild-to-mo derate right neuroforaminal stenosis at C5-C6. 4. Mild to moderate bilateral neuroforaminal stenosis at C4-C5.
== END | disposition home or self-care (01) ==
LOC: RADMRIMAIN 13:38
PROVIDERS: ATTEND Nurse Practitioner Acute Care
DX: M48.02 Spinal stenosis, cervical region (principal); M99.71 Connective tissue and disc stenosis of intervertebral foramina of cervical region; M50.21 Other cervical disc displacement, high cervical region; M47.812 Spondylosis without myelopathy or radiculopathy, cervical region; Z88.0 Allergy status to penicillin; Z88.2 Allergy status to sulfonamides; Z88.6 Allergy status to analgesic agent; Z88.8 Allergy status to other drugs, medicaments and biological substances
CPT/HCPCS: 72141